=== PATIENT | female | born 1960 | race Asian ===

== ENCOUNTER 2016-08-28 17:03 | Observation (INO) | payer OTHER ==
[2016-08-28] VITALS (13 sets, daily range): BP systolic 156–189; BP diastolic 81–102; TEMP 97.8–98.3; Ht 170.2 cm; Wt 61.7 kg
[~2016-08-28] VITALS: Ht 170.2 cm; Wt 61.7 kg
[2016-08-28 18:02] LABS: PLATELET COUNT 180 K/uL (152-353)
[2016-08-28 18:07] LABS: PARTIAL THROMBOPLASTIN TIME 24.7 SECONDS (24.5-33.6)
[2016-08-28 18:13] LABS: POTASSIUM 3.5 mmol/L (3.6-5.2)
[2016-08-29] VITALS (7 sets, daily range): BP systolic 123–154; BP diastolic 68–81; TEMP 97.7–98.9
[2016-08-29] MEDS ORDERED: METO50TA27 PO (00:23)
[2016-08-29 10:56] LABS: PLATELET COUNT 194 K/uL (152-353)
[2016-08-29 11:23] LABS: SODIUM 143 mmol/L (136-145)
[2016-08-30 04:00] VITALS: BP 107/62; TEMP 98.1
[2016-08-30 06:05] LABS: PLATELET COUNT 176 K/uL (152-353); POTASSIUM 3.9 mmol/L (3.6-5.2); SODIUM 140 mmol/L (136-145)
[2016-08-30 08:00] VITALS: BP 147/77; TEMP 98.5
[2016-08-30 12:00] VITALS: BP 180/98; TEMP 98.2
== END 2016-08-30 14:45 | disposition home or self-care (01) ==
LOC: ED 17:03 → MED/SURG 18:50
PROVIDERS: Emergency Medicine
DX: R07.89 Other chest pain (principal); M15.8 Other polyosteoarthritis; I10 Essential (primary) hypertension; M94.0 Chondrocostal junction syndrome [Tietze]; R00.1 Bradycardia, unspecified
CPT/HCPCS: 36415; 80048; 80053; 82550; 84484; 85027; 85610; 85730; 93005; 94760; 96372; 99220; 99284; G0378; J1650; J1885

== ENCOUNTER 2017-03-26 03:37 | Emergency (ER) | payer OTHER ==
[~2017-03-26] VITALS: Ht 170.2 cm; Wt 54.4 kg
[~2017-03-26 03:37] MED LIST: METO50TA27 PO
[2017-03-26] MEDS ORDERED: TIZA4TAB5 PO (04:05)
[2017-03-26] MEDS ORDERED: IRON (FERROUS S50 MG PO (04:05)
[2017-03-26] MEDS ORDERED: MECLIZINE25 MG OR (04:05)
[2017-03-26] MEDS ORDERED: HYZAAR1 TA2 PO (04:06)
[2017-03-26] MEDS ORDERED: GABA300C2 PO (04:06)
[2017-03-26 04:20] LABS: PLATELET COUNT 181 K/uL (152-353)
[2017-03-26 04:29] LABS: POTASSIUM 3.1 mmol/L (3.6-5.2); SODIUM 141 mmol/L (136-145)
[2017-03-26 04:42] LABS: PARTIAL THROMBOPLASTIN TIME 23.6 SECONDS (24.5-33.6)
[2017-03-26 05:11] VITALS: BP 136/83; TEMP 98.7
== END 2017-03-26 05:11 | disposition home or self-care (01) ==
LOC: ED 03:37
DX: M94.0 Chondrocostal junction syndrome [Tietze] (principal); B96.81 Helicobacter pylori [H. pylori] as the cause of diseases classified elsewhere; K29.60 Other gastritis without bleeding
CPT/HCPCS: 36415; 80053; 82550; 84484; 85027; 85610; 85730; 86318; 93005; 99284

== ENCOUNTER 2017-09-14 09:58 | Outpatient (CLI) | payer OTHER ==
[~2017-09-14 09:58] MED LIST changes: +GABA300C2 PO; +HYZAAR1 TA2 PO; +IRON (FERROUS S50 MG PO; +MECLIZINE25 MG OR; +TIZA4TAB5 PO
== END 2017-09-14 21:05 | disposition home or self-care (01) ==
LOC: MAMMO 09:58
DX: Z12.31 Encounter for screening mammogram for malignant neoplasm of breast (principal)

== ENCOUNTER 2017-11-06 12:49 | Outpatient (CLI) | payer OTHER | END 2017-11-06 22:55 | disposition home or self-care (01) | LOC: RAD 12:49 | DX: M54.5 Low back pain (principal) ==

== ENCOUNTER 2017-11-20 12:43 | Outpatient (CLI) | payer OTHER | END 2017-11-20 20:26 | disposition home or self-care (01) | LOC: US 12:43 | DX: R10.11 Right upper quadrant pain (principal); M54.5 Low back pain; R11.0 Nausea ==

== ENCOUNTER 2017-12-20 19:56 | Emergency (ER) | payer OTHER ==
[~2017-12-20] VITALS: Ht 170.2 cm; Wt 54.4 kg
[2017-12-20] MEDS ORDERED: ZANAFLEX2 MG PO (20:16)
[2017-12-20] MEDS ORDERED: METOPROLOL25 M1 PO (20:16)
[2017-12-20] MEDS ORDERED: TRAM50TA PO (20:16)
[2017-12-20 21:26] LABS: PLATELET COUNT 168 K/uL (152-353)
[2017-12-20 21:32] LABS: POTASSIUM 3.8 mmol/L (3.6-5.2)
[2017-12-20 23:55] VITALS: BP 158/87; TEMP 98.1
== END 2017-12-21 00:02 | disposition home or self-care (01) ==
LOC: ED 19:56
DX: K59.09 Other constipation (principal)
CPT/HCPCS: 80053; 82150; 83690; 85027; 99283; Q9963

== ENCOUNTER 2017-12-27 12:42 | Outpatient (CLI) | payer OTHER ==
[~2017-12-27 12:42] MED LIST changes: +METOPROLOL25 M1 PO; +TRAM50TA PO; +ZANAFLEX2 MG PO
== END 2017-12-27 19:12 | disposition home or self-care (01) ==
LOC: NM 12:42
DX: M54.5 Low back pain (principal); R10.11 Right upper quadrant pain; R11.0 Nausea
CPT/HCPCS: A9537

== ENCOUNTER 2018-01-09 07:51 | Observation (INO) | payer OTHER ==
[~2018-01-09] VITALS: Ht 170.2 cm; Wt 55.9 kg
[2018-01-09 07:50] VITALS: BP 190/101; TEMP 97.8
[2018-01-09 08:23] LABS: PLATELET COUNT 166 K/uL (152-353)
[2018-01-09 08:32] LABS: POTASSIUM 3.5 mmol/L (3.6-5.2); SODIUM 136 mmol/L (136-145)
[2018-01-09 08:43] VITALS: BP 173/96
[2018-01-09 08:56] LABS: PARTIAL THROMBOPLASTIN TIME 25.3 SECONDS (24.5-33.6)
[2018-01-09 09:48] VITALS: BP 164/86
[2018-01-09 10:07] VITALS: BP 169/87
--- NOTE | 2018-01-09 13:00 | NUR ---
NAKUL (DR. TAPIA'S NURSE) WAS CALLED SEVERAL TIMES WITH NO ANSWER. MESSAGE LEFT ON VOICE MAIL. WILL CONTINUE TO TRY TO REACH DR. TAIPA.
[2018-01-09 14:51] VITALS: BP 176/90; TEMP 97.8; Ht 170.2 cm; Wt 55.9 kg
--- NOTE | 2018-01-09 15:21 | NUR ---
PT CALLS UP TO NURSES STATION AND C/O CHEST PAIN. SALINA ROWE NOTIFIED. STAT EKG AND CE'S ORDERED. UPON ARRIVING TO PT'S ROOM, PT STATES SHE IS HURTING IN THE CENTER OF HER CHEST AND RATES PAIN 5 OUT OF 10. VITAL SIGNS ARE 175/94, 60, 18, AND 100%. NITRO SUBLINGAL GIVEN PER ORDER. 5 MINUTES LATER PT C/O CHEST PAIN AND STILL RATES IT 5 OUT OF 10. VITAL SIGNS 167/88, 68, 18 AND 99% ANOTHER NITRO GIVEN SUBLINGALLY. 5 MINUTES LATER PT STATES CHEST PAIN IS BETTER. VITAL SIGNS 158/78, 60, 18 AND 100%. 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
--- NOTE | 2018-01-09 15:40 | NUR ---
LAB RESULTS FROM CPK AND TROP GIVEN TO SALINA ROWE ROVING DEPARTMENT SUPERVISOR. SALINA CONTACTING DR. PITTMAN.
--- NOTE | 2018-01-09 15:44 | NUR ---
PT BEING TRANSPORTED TO [facility]. ORDERS SIGNED BY SALINA ROWE. WAITING ON ROOM ASSINMENT AT THIS TIME.
[2018-01-09 16:00] VITALS: BP 178/94; TEMP 97.8
--- NOTE | 2018-01-09 16:30 | NUR ---
PETRA SHAFFER RN FROM [facility] CALLED WITH ROOM ASSIGNMENT. PT GOING TO U 237. NUMBER GIVEN TO GIVE REPORT. NUMBER CALLED AND NURSE STATES SHE WILL CALL BACK DEEPA THAT SHE WAS BUSY WITH PT.
--- NOTE | 2018-01-09 17:50 | NUR ---
DALY RODARTE CALLED BACK FOR REPORT. REPORT GIVEN AT THIS TIME.
--- NOTE | 2018-01-09 18:00 | NUR ---
EMS CALLED, NO ANSWER WILL CONT TO CALL BACK.
--- NOTE | 2018-01-09 18:15 | NUR ---
EMS CONTACTED AT THIS TIME. SPOKE TO JANETH (EMT) AND HE STATES THEY ARE ON THEIR WAY.
--- NOTE | 2018-01-09 19:36 | NUR ---
1740 ems here to transport pt. pt alert and oriendted. no distresss noted.
--- NOTE | 2018-01-09 20:08 | NUR ---
01/09/181944 EMS FROM [facility] PICKED PATIENT UP BY STRETCHER TO TRANSFER PATIENT TO [place] ([facility] PT WAS ALERT AND ORIENTED, SALINE LOCKED 20G LAC.
== END 2018-01-09 19:45 | disposition short-term general hospital (02) ==
LOC: ED 07:51 → MED/SURG 09:40
DX: R07.89 Other chest pain (principal); I10 Essential (primary) hypertension; M15.8 Other polyosteoarthritis; D64.89 Other specified anemias
CPT/HCPCS: 36415; 80053; 82150; 82550; 82553; 83690; 84484; 85027; 85610; 85730; 93005; 94760; 99220; 99284; G0378; J1650

== ENCOUNTER 2018-03-04 02:33 | Outpatient (CLI) | payer OTHER ==
[2018-03-04] MEDS ORDERED: METO-837 PO (03:08)
[2018-03-04] MEDS ORDERED: FERROUS SULF325 M1 PO (03:09)
[2018-03-04] MEDS ORDERED: ALL DAY ALLG10 MG PO (03:11)
[2018-03-04] MEDS ORDERED: PANTOPRAZOLE 40MG TA PO (03:11)
[2018-03-04] MEDS ORDERED: ASPIRIN/ENTERIC81 MG PO (14:39)
== END 2018-03-04 02:44 | disposition short-term general hospital (02) ==
LOC: AMB 02:33
DX: R07.89 Other chest pain (principal)
CPT/HCPCS: A0425; A0427

== ENCOUNTER 2018-03-04 02:52 | Observation (INO) | payer OTHER ==
[2018-03-04] VITALS (9 sets, daily range): BP systolic 144–189; BP diastolic 77–97; TEMP 97.7–98.5; Ht 170.2 cm; Wt 55.0 kg
[~2018-03-04] VITALS: Ht 170.2 cm; Wt 55.0 kg
[2018-03-04] MEDS ORDERED: METO-837 PO (03:08)
[2018-03-04] MEDS ORDERED: FERROUS SULF325 M1 PO (03:09)
[2018-03-04] MEDS ORDERED: PANTOPRAZOLE 40MG TA PO (03:11)
[2018-03-04] MEDS ORDERED: ALL DAY ALLG10 MG PO (03:11)
[2018-03-04 03:15] LABS: PLATELET COUNT 153 K/uL (152-353)
[2018-03-04 03:30] LABS: POTASSIUM 3.6 mmol/L (3.6-5.2); SODIUM 141 mmol/L (136-145)
[2018-03-04 03:35] LABS: PARTIAL THROMBOPLASTIN TIME 25.4 SECONDS (24.5-33.6)
[2018-03-04] MEDS ORDERED: ASPIRIN/ENTERIC81 MG PO (14:39)
== END 2018-03-04 16:50 | disposition home or self-care (01) ==
LOC: ED 02:52 → MED/SURG 04:15
DX: R07.89 Other chest pain (principal); R00.1 Bradycardia, unspecified; I10 Essential (primary) hypertension
CPT/HCPCS: 80053; 82550; 84484; 85027; 85610; 85730; 93005; 96372; 99220; 99284; G0378; J1650

== ENCOUNTER 2019-08-27 08:46 | Outpatient (CLI) | payer OTHER ==
[~2019-08-27 08:46] MED LIST changes: +ALL DAY ALLG10 MG PO; +ASPIRIN/ENTERIC81 MG PO; +FERROUS SULF325 M1 PO; +METO-837 PO; +PANTOPRAZOLE 40MG TA PO
== END 2019-08-27 21:07 | disposition home or self-care (01) ==
LOC: MAMMO 08:46
DX: Z12.31 Encounter for screening mammogram for malignant neoplasm of breast (principal)

== ENCOUNTER 2022-04-27 08:02 | Outpatient (CLI) | payer OTHER | END 2022-04-27 19:08 | disposition home or self-care (01) | LOC: MAMMO 08:02 | PROVIDERS: ATTEND Nurse Practitioner Family | DX: Z12.31 Encounter for screening mammogram for malignant neoplasm of breast (principal) ==